=== PATIENT | female | born 1965 | race Caucasian/White ===

== ENCOUNTER 2025-06-01 23:56 | Emergency (ER) | payer MEDICAID, OTHER ==
[~2025-06-01] VITALS: Ht 175.3 cm; Wt 81.6 kg
[2025-06-02] MEDS ORDERED: KETOROLAC TROMETHAMINE INJ 30 MG/ML VIAL ONE (01:27)
[2025-06-02] MEDS: KETOROLAC TROMETHAMINE INJ 30 MG/ML VIAL IM ONE (01:32)
[2025-06-02] MEDS ORDERED: HYDR-3980 PO (01:43)
[2025-06-02 02:32] VITALS: BP 140/79; TEMP 98.2; O2SAT 96
== END 2025-06-02 02:44 | disposition home or self-care (01) ==
LOC: ER 06-02 00:10
DX: S52.532A Colles' fracture of left radius, initial encounter for closed fracture (principal); M25.839 Other specified joint disorders, unspecified wrist; J32.9 Chronic sinusitis, unspecified; W22.01XA Walked into wall, initial encounter; Y93.89 Activity, other specified; Y92.89 Other specified places as the place of occurrence of the external cause; Y99.9 Unspecified external cause status
CPT/HCPCS: 29125; 73110; 96372; 99283; J1885